=== PATIENT | male | born 1985 | race Native Hawaiian/Other Pacific Islander ===

== ENCOUNTER 2017-10-19 03:45 | Emergency (ER) | payer BC ==
[~2017-10-19] VITALS: Ht 177.8 cm; Wt 79.4 kg
[2017-10-19 04:16] LABS: PLATELET COUNT 269 K/uL (142-355)
== END 2017-10-19 04:47 | disposition home or self-care (01) ==
LOC: ED 03:45
DX: R23.8 Other skin changes (principal)
CPT/HCPCS: 85027; 99282